=== PATIENT | male | born 1970 | race Caucasian/White ===

== ENCOUNTER 2024-05-24 20:11 | Emergency (ER) | payer OTHER, SELFPAY ==
[2024-05-24] VITALS (17 sets, daily range): BP systolic 119–173; BP diastolic 66–105; BMI 31.8
--- NOTE | 2024-05-24 21:21 | ED.MUSCINJ ---
HPI-Injury
General
Chief Complaint: Musculo-Skeletal Complaint
Source: patient and spouse
Exam Limitations: none
Time Seen by Provider: 05/24/24 21:10
Nursing documentation reviewed up to this point in time: agreed with
History of Present Illness-Injury
Is this injury a work related problem?: No
Is pt an associate of [facility]/[place]?: No
Initial Injury comments:
53 yo male presents to the emergency department complaining of left shoulder pain after falling while playing pickle ball.
Past History
Past History
ED Past Medical History: Arrthythmia (Atrial fibrillation)
ED Past Surgical History: Cardiac (Cardiac ablation)
Social History
Tobacco: Non-smoker
Alcohol: None
Drug: None
Personal:
Living: with family
Review of Systems
Review of Systems
Allergies reviewed?: Yes
All Other Systems: Not applicable
Constitutional: Reports no symptoms
EENT: Reports no symptoms
Respiratory: Reports no symptoms
Cardiac: Reports no symptoms
ABD/GI: Reports no symptoms
: Reports no symptoms
Musculoskeletal: Reports joint pain
Skin: Reports no symptoms
Neurological: Reports no symptoms
Endocrine: Reports no symptoms
Hematologic/Lymphatic: Reports no symptoms
Psychiatric: Reports no symptoms
Phy Exam
Physical Exam
Physical Exam:
Physical Exam
General: Appears in pain
Neck: supple. no meningeal signs. normal posterior pharynx
Heart: s1/s2 regular rate and rhythm, no murmur. equal radial
pulses.
HEENT: Pupils equal round reactive to light, EOMI
Lungs: no acute respiratory distress. clear bilaterally
Abdomen: normal bowel sounds. not tender. no CVAT
Neuro: alert and oriented. no focal neurological deficits cranial nerves II through XII intact
Skin: no rash
Psychiatric: well kept. interactive and cooperative
Extremities: no edema. no calf tenderness. negative homans. good distal pulses, left shoulder anterior dislocation
Injury Course
Orders/Labs/Results
Orders:
Orders
05/24/24 20:17
Shoulder, Left, Trauma CR [CR Shoulder, Trauma - Left] Urgent
Comment:
Reason For Exam: fall, left shoulder pain
05/24/24 21:18
IV Insert/Care/Rem.- Treatment PRN
HYDROmorphone [Dilaudid] 1 mg IV NOW STA
05/24/24 21:19
Propofol [Diprivan] 60 mg IV NOW STA
05/24/24 21:20
ASA Classification Routine
05/24/24 21:48
Shoulder, Left 1 View CR [CR Shoulder - Left 1 View] Urgent
Comment:
Reason For Exam: reduction
Procedures
Moderate Sedation
ASA Risk Score: Class I
Chart and allergies reviewed: Yes
Consent for anesthesia obtained: Yes
Time out completed (validating right patient & procedure): Yes
Moderate Sedation Start Time(when first medication is given): 21:40
History of difficult intubation: No
Airway free of obstruction: Yes
Patient has a gag reflex: Yes
Patient is able to open mouth: Yes
Patient has no dentures: Yes
Patient has no loose teeth: Yes
Medication administered by Provider during Moderate Sedation: IV Propofol (mg)
Total dose administered: 100
Time drug administered: 21:40
Moderate Sedation Procedure End Time: 21:50
Joint/Fracture Reduction
Left Shoulder:
Indication for procedure:: Left shoulder dislocation
Procedure completed by: Dr. Cantu
Consent form signed: Yes
Joint reduced: with anesthesia sedation
Anesthesia/sedation: Moderate sedation
Injury was: closed
Further treatement: needs re-check only
Post reduction exam: stable
Capillary Refill: normal
Normal distal neurovascular exam?: Yes
Peripheral Pulses: radial (right): 4+
MDM/Problems Addressed
Differential Diagnosis Includes:
Humerus fracture, shoulder dislocation
MDM/Problems Addressed:
53-year-old male with left shoulder dislocation, reduced under sedation. Neurologically intact. Tolerated sedation well.
Chronic conditions affecting care: Arrhythmia
*Radiology
Radiology exam reviewed: preliminary read by ED provider (X-ray shows left shoulder dislocation, repeat x-ray shows satisfactory reduction)
*Pulse Oximetry
Patient hypoxic: no
*Rose [facility]er Interpretation
Rate: normal
Interpretation: normal
Heart Rate: 65
Rhythm: sinus
*Critical Care Note
Total Time (30-74mins, 75-104mins- exclusive of procedures): Not Applicable
Patient Management
Social determinants of health affecting care: Living situation and Strong social support
Escalation/DeEscalation of care consider admission/obs:
Admit not indicated
ED Attending Note
-
Portions of this chart may have been created with voice recognition software.� Occasional wrong word or��sound alike� substitutions may have occurred due to the inherent limitations of voice recognition software.
Discharge Plan
Departure
Patient Disposition: Home (Routine Discharge)
Date of Disposition: 05/24/24
Time of Disposition: 22:39
Patient with high blood pressure during this ER visit?: Yes
Condition: Good
Discharge Problem:
Closed dislocation of left shoulder
Instructions: Shoulder Dislocation (DC), MODERATE SEDATION ADULT, BLOOD PRESSURE
Prescriptions:
No Action
oxycodone 5 MG/5 ML solution
5 mg PO Q4HPRN PRN (Reason: pain) Qty: 10 0RF
cephalexin 500 MG capsule
500 mg PO QID Qty: 40 0RF
oxycodone 5 MG tablet
5 mg PO Q4HPRN PRN (Reason: pain) Qty: 10 0RF
Referrals:
Clarke Lara MD [Active] - Call in 1-3 days for appt
UNKNOWN - PT DOES,NOT KNOW [Family Provider] -
Interventions
Interventions:
*Risk Screen - Suicide Last Done: 05/24/24 20:40
*General Assessment Last Done: 05/24/24 20:40
*Neglect/Abuse Screening Last Done: 05/24/24 20:40
*ED- Fall Risk Assessment Last Done: 05/24/24 20:40
*ED COVID-19 Vaccine History Last Done: 05/24/24 20:40
*Nursing Disposition Last Done: 05/24/24 23:03
ED-Musculoskeletal Assessment Last Done: 05/24/24 20:40
Discharge Date and Time
Discharge Date/Time: 05/24/24 23:03
Print Language: ESTONIAN
[2024-05-24] MEDS: DILAUDID 1 MG IV (21:23)
[2024-05-24] MEDS: DIPRIVAN 60 MG IV (21:40)
== END 2024-05-24 23:03 | disposition home or self-care (01) ==
LOC: EMR 20:11
PROVIDERS: EMERGENCY PHYSICIAN Emergency Medicine
DX: S43.005A Unspecified dislocation of left shoulder joint, initial encounter (principal); W19.XXXA Unspecified fall, initial encounter; I48.91 Unspecified atrial fibrillation
CPT/HCPCS: 99283; 23650; 99152; 96374; 96375; 73020; 73030

== ENCOUNTER 2024-05-25 23:35 | Emergency (ER) | payer OTHER, SELFPAY ==
[2024-05-25 23:48] VITALS: BP 190/102
[2024-05-26] VITALS (10 sets, daily range): BP systolic 130–192; BP diastolic 62–100; BMI 33.4
--- NOTE | 2024-05-26 00:25 | ED.MUSCINJ ---
HPI-Injury
General
Chief Complaint: Musculo-Skeletal Complaint
Source: patient and spouse
Exam Limitations: none
Time Seen by Provider: 05/26/24 00:18
Nursing documentation reviewed up to this point in time: agreed with
History of Present Illness-Injury
Initial Injury comments:
53-year-old male presents emergency department due to shoulder dislocation. He was laying in bed and his shoulder popped out. He was here yesterday for shoulder dislocation.
Past History
Past History
ED Past Medical History: Arrthythmia (Atrial fibrillation)
ED Past Surgical History: Cardiac (Cardiac ablation)
Social History
Tobacco: Non-smoker
Alcohol: None
Drug: None
Personal:
Living: with family
Review of Systems
Review of Systems
Allergies reviewed?: Yes
All Other Systems: ROS reviewed and negative except as documented in HPI and ROS
Respiratory: Denies trouble breathing
Cardiac: Denies chest pain
Musculoskeletal: Reports joint pain
Phy Exam
Physical Exam
Physical Exam:
Physical Exam
General: no apparent distress, not acutely ill
Neck: supple. no meningeal signs. normal posterior pharynx
Heart: s1/s2 regular rate and rhythm, no murmur. equal radial
pulses.
HEENT: Pupils equal round reactive to light, EOMI
Lungs: no acute respiratory distress. clear bilaterally
Abdomen: normal bowel sounds. not tender. no CVAT
Neuro: alert and oriented. no focal neurological deficits
Skin: no rash
Psychiatric: well kept. interactive and cooperative
Extremities: no edema. no calf tenderness. negative homans. good distal pulses, left shoulder held internal rotation, anterior dislocation
Injury Course
Orders/Labs/Results
Orders:
Orders
05/26/24 00:00
CR Shoulder, Trauma - Left Urgent
Reason For Exam: PT STATES REDISLOCATED LIKE LAST NIGHT
05/26/24 00:28
ASA Classification Routine
Propofol [Diprivan] 100 mg IV NOW STA
05/26/24 00:52
Shoulder, Left 1 View CR [CR Shoulder - Left 1 View] Urgent
Comment:
Reason For Exam: reduction
Procedures
Moderate Sedation
ASA Risk Score: Class I
Chart and allergies reviewed: Yes
Consent for anesthesia obtained: Yes
Time out completed (validating right patient & procedure): Yes
Moderate Sedation Start Time(when first medication is given): 00:49
History of difficult intubation: No
Airway free of obstruction: Yes
Patient has a gag reflex: Yes
Patient is able to open mouth: Yes
Patient has no dentures: Yes
Patient has no loose teeth: Yes
Medication administered by Provider during Moderate Sedation: IV Propofol (mg)
Total dose administered: 100
Time drug administered: 00:49
Moderate Sedation Procedure End Time: 00:59
Joint/Fracture Reduction
Left Shoulder:
Indication for procedure:: left shoulder dislocation
Procedure completed by: Dr. Cantu/Juan Antonio Rosenthal PA-C
Consent form signed: Yes
Joint reduced: with anesthesia sedation
Injury was: closed
Further treatement: needs further treatment
Post reduction exam: stable
Capillary Refill: normal
Normal distal neurovascular exam?: Yes
Peripheral Pulses: radial (right): 4+
MDM/Problems Addressed
Differential Diagnosis Includes:
Left shoulder dislocation
MDM/Problems Addressed:
53-year-old male with left shoulder dislocation, reduced under sedation. Tolerated procedure well. Follow-up with orthopedics
*Radiology
Radiology exam reviewed: preliminary read by ED provider (Left shoulder x-ray shows anterior dislocation with satisfactory reduction and subsequent x-ray)
*Pulse Oximetry
Patient hypoxic: no
*Critical Care Note
Total Time (30-74mins, 75-104mins- exclusive of procedures): Not Applicable
Patient Management
Social determinants of health affecting care: Living situation and Strong social support
Escalation/DeEscalation of care consider admission/obs:
Admit not indicated
ED Attending Note
-
Portions of this chart may have been created with voice recognition software.� Occasional wrong word or��sound alike� substitutions may have occurred due to the inherent limitations of voice recognition software.
Discharge Plan
Departure
Patient Disposition: Home (Routine Discharge)
Date of Disposition: 05/26/24
Time of Disposition: :28
Patient with high blood pressure during this ER visit?: Yes
Condition: Good
Discharge Problem:
Anterior dislocation of left shoulder
Instructions: Shoulder Dislocation (DC), MODERATE SEDATION ADULT
Prescriptions:
No Action
oxycodone 5 MG/5 ML solution
5 mg PO Q4HPRN PRN (Reason: pain) Qty: 10 0RF
cephalexin 500 MG capsule
500 mg PO QID Qty: 40 0RF
oxycodone 5 MG tablet
5 mg PO Q4HPRN PRN (Reason: pain) Qty: 10 0RF
Referrals:
Clarke Lara MD [Active] - Call in 1-3 days for appt
UNKNOWN - PT DOES,NOT KNOW [Family Provider] -
Interventions
Interventions:
*Risk Screen - Suicide Last Done: 05/25/24 23:48
*General Assessment Last Done: 05/26/24 00:22
*Neglect/Abuse Screening Last Done: 05/25/24 23:48
*ED- Fall Risk Assessment Last Done: 05/26/24 00:22
*ED COVID-19 Vaccine History Last Done: 05/26/24 00:22
ED-Musculoskeletal Assessment Last Done: 05/26/24 00:23
Discharge Date and Time
Print Language: AMHARIC
[2024-05-26] MEDS: DIPRIVAN 100 MG IV (00:49)
== END 2024-05-26 01:37 | disposition home or self-care (01) ==
LOC: EMR 23:35
PROVIDERS: EMERGENCY PHYSICIAN Emergency Medicine
DX: S43.015A Anterior dislocation of left humerus, initial encounter (principal); X58.XXXA Exposure to other specified factors, initial encounter; I48.91 Unspecified atrial fibrillation
CPT/HCPCS: 23650; 99152; 99285; 73020; 73030